=== PATIENT | male | born 1945 | race Caucasian/White ===

== ENCOUNTER → 2023-09-29 13:00 | Outpatient (REF) | payer MEDICARE, SELFPAY | LOC: RAD 13:00 | PROVIDERS: ATTENDING PHYSICIAN Surgery Vascular Surgery | DX: I71.40 Abdominal aortic aneurysm, without rupture, unspecified (principal) | CPT/HCPCS: 76770 ==

== ENCOUNTER → 2024-09-27 12:38 | Outpatient (REF) | payer MEDICARE, SELFPAY | LOC: RAD 12:38 | PROVIDERS: ATTENDING PHYSICIAN Surgery Vascular Surgery | DX: I71.40 Abdominal aortic aneurysm, without rupture, unspecified (principal) | CPT/HCPCS: 76770 ==